=== PATIENT | female | born 1945 | race Caucasian/White ===

== ENCOUNTER 2016-12-18 10:11 | Emergency (ER) | payer MEDICARE, OTHER ==
[~2016-12-18] VITALS: Ht 157.5 cm; Wt 65.0 kg
[~2016-12-18 10:11] MED LIST: SYNT112T PO; VALA500 PO
[2016-12-18 10:12] VITALS: BP 188/93; PULSE 89; RESP 17; TEMP 98.6; O2SAT 99
[2016-12-18] MEDS ORDERED: SYNT112T PO (10:30)
[2016-12-18] MEDS ORDERED: METR-1 PO (10:30)
--- NOTE | 2016-12-18 10:43 | PD ---
HPI . abdominal pain since colonoscopy on 12/13 Chief Complaint: Abdominal Pain Time Seen by Provider: 10:43 Travel History International Travel<30 days: No Contact w/Intl Traveler<30days: No Traveled to known affect area: No History of Present Illness HPI 70 yr old female with no significant PMH here with c/o mild abdominal discomfort s/p colonoscopy on 12/13/16. Patient says she has lower abdominal pain , more so located in her LLQ. She says it's an aching type of pain and rated as 5/10 without any further radiation other than in the lower quadrant. She admits to initially having some loose stools, but then it started to form a little more. She did not have a bowel movement yesterday because she stopped eating in hopes the low grade pain would disappear. She contacted her GI doc and he recommended she come in for evaluation. She denies any melena or hematochezia. She denies any nausea, vomiting, or dysuria. PFSH Past Medical History Autoimmune Disease: Yes (HERPES) Cardiovascular Problems: No Diminished Hearing: No Genitourinary: Yes (POSS RECENT KIDNEY INFECTION JUNE 2015) Neurologic: No Psychiatric: No Respiratory: No Integumentary: Yes Thyroid Disease: Yes (HYPOTHYROID) Tetanus Vaccination: > 5 Years Influenza Vaccination: No Menopausal: Yes Dilation and Curettage (D&C): Yes Past Surgical History Other Surgery: Yes (A&T; APPENDECTOMY; D&C) Social History Alcohol Use: Yes (OCCASIONAL) Tobacco Use: No Substance Use: No Allergies-Medications (Allergen,Severity, Reaction): Coded Allergies: Quinolones (Verified Allergy, Severe, Rash, 12/18/16) Sulfa (Verified Allergy, Severe, Anaphylaxis, 12/18/16) Penicillin (Verified Allergy, Mild, RASH, 12/18/16) Reported Meds & Prescriptions Reported Meds & Active Scripts Active Reported Flagyl (Metronidazole) 500 Mg Tab 500 Mg PO TID Synthroid (Levothyroxine Sodium) 112 Mcg Tab 112 Mcg PO DAILY Review of Systems General / Constitutional: No: Fever Eyes: No: Visual changes HENT: No: Headaches Cardiovascular: No: Chest Pain or Discomfort Respiratory: No: Shortness of Breath Gastrointestinal: Positive: Abdominal Pain (low quadrant) Genitourinary: No: Dysuria Musculoskeletal: No: Pain Skin: No Rash Neurologic: No: Weakness Psychiatric: No: Depression Endocrine: No: Polydipsia Hematologic/Lymphatic: No: Easy Bruising Physical Exam Narrative GENERAL: AAO x 3, no acute distress, Well-nourished, well-developed patient. SKIN: Warm and dry. No visible rashes or bruising. HEAD: Normocephalic and atraumatic. EYES: No scleral icterus. No injection or drainage. ENT: No nasal drainage noted. Mucous membranes pink. Airway patent. NECK: Supple, trachea midline. No JVD. CARDIOVASCULAR: Regular rate and rhythm without murmurs, gallops, or rubs. RESPIRATORY: Breath sounds equal bilaterally. No accessory muscle use. No rhonchi or rales. GASTROINTESTINAL: Abdomen soft,tenderness in lower quadrants, normoactive bowel sounds EXTREMITIES: No cyanosis or edema. NEURO: CN II through XII intact BACK: Nontender without obvious deformity. No CVA tenderness. PSYCH: AAO x 3, normal affect. Data Data Last Documented VS Vital Signs Date Time Temp Pulse Resp B/P Pulse Ox O2 Delivery O2 Flow Rate FiO2 12/18/16 13:36 97.8 68 16 158/78 100 12/18/16 12:56 Room Air Orders Complete Blood Count With Diff (12/18/16 10:50) Comprehensive Metabolic Panel (12/18/16 10:50) Prothrombin Time / Inr (Pt) (12/18/16 10:50) Act Partial Throm Time (Ptt) (12/18/16 10:50) Urinalysis - C+S If Indicated (12/18/16 10:50) Ct Abd/Pel W Iv Contrast(Rout) (12/18/16 10:50) Iv Access Insert/Monitor (12/18/16 10:50) NPO (12/18/16 10:50) Electrocardiogram (12/18/16 10:50) Oral Contrast - Adult (12/18/16 10:57) Diatrizoate Liq ( Gastroview Liq) (12/18/16 11:15) Iohexol 350 Inj (Omnipaque 350 Inj) (12/18/16 12:42) Labs Laboratory Tests Test 12/18/16 10:54 White Blood Count 6.5 TH/MM3 Red Blood Count 4.48 MIL/MM3 Hemoglobin 14.7 GM/DL Hematocrit 42.0 % Mean Corpuscular Volume 93.8 FL Mean Corpuscular Hemoglobin 32.8 PG Mean Corpuscular Hemoglobin 35.0 % Concent Red Cell Distribution Width 13.2 % Platelet Count 252 TH/MM3 Mean Platelet Volume 7.7 FL Neutrophils (%) (Auto) 69.6 % Lymphocytes (%) (Auto) 18.5 % Monocytes (%) (Auto) 8.0 % Eosinophils (%) (Auto) 2.9 % Basophils (%) (Auto) 1.0 % Neutrophils # (Auto) 4.6 TH/MM3 Lymphocytes # (Auto) 1.2 TH/MM3 Monocytes # (Auto) 0.5 TH/MM3 Eosinophils # (Auto) 0.2 TH/MM3 Basophils # (Auto) 0.1 TH/MM3 CBC Comment DIFF FINAL Differential Comment Prothrombin Time 10.8 SEC Prothromb Time International 1.0 RATIO Ratio Activated Partial 25.7 SEC Thromboplast Time Urine Color YELLOW Urine Turbidity CLEAR Urine pH 7.0 Urine Specific [place] 1.012 Urine Protein NEG mg/dL Urine Glucose (UA) NEG mg/dL Urine Ketones NEG mg/dL Urine Occult Blood NEG Urine Nitrite NEG Urine Bilirubin NEG Urine Urobilinogen LESS THAN 2.0 MG/DL Urine Leukocyte Esterase NEG Urine RBC 2 /hpf Urine WBC LESS THAN 1 /hpf Microscopic Urinalysis Comment CULT NOT INDICATED Sodium Level 140 MEQ/L Potassium Level 4.7 MEQ/L Chloride Level 104 MEQ/L Carbon Dioxide Level 28.6 MEQ/L Anion Gap 7 MEQ/L Blood Urea Nitrogen 9 MG/DL Creatinine 0.66 MG/DL Estimat Glomerular Filtration 88 ML/MIN Rate Random Glucose 90 MG/DL Calcium Level 9.3 MG/DL Total Bilirubin 0.5 MG/DL Aspartate Amino Transf 18 U/L (AST/SGOT) Alanine Aminotransferase 21 U/L (ALT/SGPT) Alkaline Phosphatase 77 U/L Total Protein 7.0 GM/DL Albumin 3.7 GM/DL [facility] Medical Decision Making Medical Screen Exam Complete: Yes Emergency Medical Condition: Yes Medical Record Reviewed: Yes Differential Diagnosis irritation after laxative from colonoscopy, constipation, colitis, less likely acute abdomen Narrative Course 70 yr old female here with c/o lower quadrant abdominal pain. On exam she has some mild tenderness to palpation of lower abdomen. Guaiac was very minimally positive with only a hint of landeros coloring. Labs ordered and CT scan of abdomen ordered. I believe this is residual for the laxative used prior to the colonoscopy. She is already on Flagyl. Last Impressions Abdomen/Pelvis CT 12/18/16 1050 Signed Impressions: Service Date/Time: Sunday, December 18, 2016 12:31 - CONCLUSION: 1. No acute finding is identified within the abdomen or pelvis. Please note that there is respiratory motion artifact. 2. Non acute findings included cholelithiasis, mild atherosclerotic disease, and sigmoid diverticulosis. Lester Cardoso MD Laboratory Tests Test 12/18/16 10:54 White Blood Count 6.5 TH/MM3 Red Blood Count 4.48 MIL/MM3 Hemoglobin 14.7 GM/DL Hematocrit 42.0 % Mean Corpuscular Volume 93.8 FL Mean Corpuscular Hemoglobin 32.8 PG Mean Corpuscular Hemoglobin 35.0 % Concent Red Cell Distribution Width 13.2 % Platelet Count 252 TH/MM3 Mean Platelet Volume 7.7 FL Neutrophils (%) (Auto) 69.6 % Lymphocytes (%) (Auto) 18.5 % Monocytes (%) (Auto) 8.0 % Eosinophils (%) (Auto) 2.9 % Basophils (%) (Auto) 1.0 % Neutrophils # (Auto) 4.6 TH/MM3 Lymphocytes # (Auto) 1.2 TH/MM3 Monocytes # (Auto) 0.5 TH/MM3 Eosinophils # (Auto) 0.2 TH/MM3 Basophils # (Auto) 0.1 TH/MM3 CBC Comment DIFF FINAL Differential Comment Prothrombin Time 10.8 SEC Prothromb Time International 1.0 RATIO Ratio Activated Partial 25.7 SEC Thromboplast Time Urine Color YELLOW Urine Turbidity CLEAR Urine pH 7.0 Urine Specific [place] 1.012 Urine Protein NEG mg/dL Urine Glucose (UA) NEG mg/dL Urine Ketones NEG mg/dL Urine Occult Blood NEG Urine Nitrite NEG Urine Bilirubin NEG Urine Urobilinogen LESS THAN 2.0 MG/DL Urine Leukocyte Esterase NEG Urine RBC 2 /hpf Urine WBC LESS THAN 1 /hpf Microscopic Urinalysis Comment CULT NOT INDICATED Sodium Level 140 MEQ/L Potassium Level 4.7 MEQ/L Chloride Level 104 MEQ/L Carbon Dioxide Level 28.6 MEQ/L Anion Gap 7 MEQ/L Blood Urea Nitrogen 9 MG/DL Creatinine 0.66 MG/DL Estimat Glomerular Filtration 88 ML/MIN Rate Random Glucose 90 MG/DL Calcium Level 9.3 MG/DL Total Bilirubin 0.5 MG/DL Aspartate Amino Transf 18 U/L (AST/SGOT) Alanine Aminotransferase 21 U/L (ALT/SGPT) Alkaline Phosphatase 77 U/L Total Protein 7.0 GM/DL Albumin 3.7 GM/DL Results discussed with Dr. Cook. Patient already on Flagyl. Continue daily to cover early diverticulitis. Recommend f/u with GI this upcoming week. Advised to call for appt. Patient verbalized understanding of instructions, questions were answered, and thanked me for their care. I advised them if their condition worsens, please return to the nearest emergency room for further care. Diagnosis Primary Impression: Lower abdominal tenderness Patient Instructions: General Instructions Additional Instructions: Continue taking your Flagyl. Follow up with your GI doctor this week. Please return to emergency department if your symptoms return or worsen. Follow up with your primary care provider. Take medications as prescribed. Med/Other Pt SpecificInfo: No Change to Meds Disposition: 01 DISCHARGE HOME Condition: Stable Lani Almaguer December 18, 2016 10:43
[2016-12-18 11:13] LABS: AUTOMATED NEUTROPHIL # 4.6 TH/MM3 (1.8-7.7); BASOPHIL # 0.1 TH/MM3 (0-0.2); EOSINOPHIL # 0.2 TH/MM3 (0-0.4); EOSINOPHIL % 2.9 % (0.0-4.0); HEMO FLAGS DIFF FINAL; LYMPH % 18.5 % (9.0-44.0); LYMPHOCYTE # 1.2 TH/MM3 (1.0-4.8); MEAN CELL VOLUME 93.8 FL (80.0-100.0); MEAN CORPUSCULAR HEMOGLOBIN 32.8 PG (27.0-34.0); NEUT % 69.6 % (16.0-70.0); PLATELET COUNT 252 TH/MM3 (150-450); RED BLOOD COUNT 4.48 MIL/MM3 (4.00-5.30); RED CELL DISTRIBUTION WIDTH 13.2 % (11.6-17.2); WHITE BLOOD COUNT 6.5 TH/MM3 (4.0-11.0)
[2016-12-18] MEDS ORDERED: DIATRIZOATE MEGLUM/DIATRIZOATE SOD 9 ML CUP ONE (11:15)
[2016-12-18 11:20] LABS: BLOOD, URINE NEG (NEG); COMMENT (UR) CULT NOT INDICATED; CULTURE IF INDICATED CULT NOT INDICATED; GLUCOSE,URINE NEG (NEG); KETONE, URINE NEG (NEG); NITRITE,URINE NEG (NEG); URINE COLOR YELLOW (YELLW/STRAW)
[2016-12-18 11:22] LABS: APTT (PATIENT) 25.7 SEC (24.3-30.1); PROTHROMBIN TIME - PATIENT 10.8 SEC (9.8-11.6)
[2016-12-18 11:32] LABS: ALT (GPT) 21 U/L (10-53); ANION GAP 7 MEQ/L (5-15); AST (GOT) 18 U/L (15-37); BICARBONATE 28.6 MEQ/L (21.0-32.0); BLOOD UREA NITROGEN 9 MG/DL (7-18); CHLORIDE 104 MEQ/L (98-107); GLOMERULAR FILTRATION RATE 88 ML/MIN (>89); POTASSIUM 4.7 MEQ/L (3.5-5.1); SODIUM (NA) 140 MEQ/L (136-145)
[2016-12-18 11:34] LABS: ALKALINE PHOSPHATASE 77 U/L (45-117); TOTAL BILIRUBIN ADULT 0.5 MG/DL (0.2-1.0)
[2016-12-18] MEDS ORDERED: IOHEXOL 350 MG/ML 10 ML VIAL (for RAD DIAG) IV ONE (12:42)
--- NOTE | 2016-12-18 12:50 | RADRPT ---
EXAM DATE/TIME: 12/18/2016 12:31 [facility] COMPARISON: No previous studies available for comparison. INDICATIONS : Abdominal pain for 5 days post colonscopy. IV CONTRAST: 72 cc Omnipaque 350 (iohexol) IV ORAL CONTRAST: Prescribed oral contrast ingested. RADIATION DOSE: 10.08 CTDIvol (mGy) MEDICAL HISTORY : None SURGICAL HISTORY : Appendectomy. ENCOUNTER: Initial ACUITY: 4 - 6 days PAIN SCALE: 4/10 LOCATION: Bilateral abdomen TECHNIQUE: Volumetric scanning of the abdomen and pelvis was performed. Using automated exposure control and ad justment of the mA and/or kV according to patient size, radiation dose was kept as low as reasonably achievable to obtain optimal diagnostic quality images. FINDINGS: There is respiratory motion artifact. LOWER LUNGS: The visualized lower lungs are clear. LIVER: Homogeneous density without lesion. There is no dilation of the biliary tree. Multiple small calcif ied stones are in the gallbladder. SPLEEN: Normal size without lesion. PANCREAS: Within normal limits. KIDNEYS: Normal in size and shape. There is no mass, stone or hydronephrosis. ADRENAL GLANDS: Within normal limits. VASCULAR: There is no aortic aneurysm. There is mild atherosclerotic disease. BOWEL/MESENTERY: The stomach, small bowel, and colon demonstrate no acute abnormality. There is no free intraperitone al air or fluid. There is sigmoid diverticulosis. ABDOMINAL WALL: Within normal limits. RETROPERITONEUM: There is no lymphadenopathy. BLADDER: No wall thickening or mass. REPRODUCTIVE: Within normal limits. INGUINAL: There is no lymphadenopathy or hernia. MUSCULOSKELETAL: There are mild degenerative changes of the lumbar spine. CONCLUSION: 1. No acute finding is identified within the abdomen or pelvis. Please note that there is respiratory motion artifact. 2. Non acute findings included cholelithiasis, mild atherosclerotic disease, and sigmoid diverticulos is. Lester Cardoso MD on December 18, 2016 at 12:46 Board Certified Radiologist. This report was verified electronically.
[2016-12-18 12:56] VITALS: BP 161/74; PULSE 68; RESP 16; TEMP 97.8; O2SAT 99
[2016-12-18 13:36] VITALS: BP 158/78; TEMP 97.8
--- NOTE | 2016-12-18 14:57 | EKG ---
Date Performed: 12/18/2016 Time Performed: 10:59:02 PTAGE: 70 years EKG: Sinus rhythm POSSIBLE ANTERIOR MYOCARDIAL INFARCTION ABNORMAL ECG NO SIGNIFICANT CHANGE FROM PRIOR ELECTROCARDIOG JUAREZ. PREVIOUS TRACING : 07/27/2015 02.15 DOCTOR: Papa Nicole Interpretating Date/Time 12/18/2016 14:56:18
== END 2016-12-18 13:36 | disposition home or self-care (01) ==
LOC: NEPD 10:11
DX: R10.32 Left lower quadrant pain (principal); R94.31 Abnormal electrocardiogram [ECG] [EKG]; E03.9 Hypothyroidism, unspecified; Z98.890 Other specified postprocedural states; Z86.2 Personal history of diseases of the blood and blood-forming organs and certain disorders involving the immune mechanism; Z87.448 Personal history of other diseases of urinary system; Z87.2 Personal history of diseases of the skin and subcutaneous tissue
CPT/HCPCS: 74177; 80053; 81001; 85025; 85610; 85730; 93005; 99285; Q9963; Q9967